=== PATIENT | female | born 1945 | race Asian ===

== ENCOUNTER 2019-12-14 15:39 | Emergency (ER) | payer MEDICARE, OTHER ==
[2019-12-14 15:57] LABS: BASOPHILS % (AUTO) 0.3 %; EOSINOPHILS # (AUTO) 0.2 10^3/uL (0.0-0.7); EOSINOPHILS % (AUTO) 2.7 %; LYMPHOCYTES # (AUTO) 1.2 10^3/uL (1.5-3.5); LYMPHOCYTES % (AUTO) 20.6 %; MEAN CORPUSCULAR HEMOGLOBIN 32.3 pg (27.0-31.0); MEAN CORPUSCULAR HGB CONC 33.7 g/dL (32.0-36.0); MEAN CORPUSCULAR VOLUME 95.8 fL (81.0-99.0); MEAN PLATELET VOLUME 9.7 fL (7.9-10.8); MONOCYTES # (AUTO) 0.5 10^3/uL (0.0-1.0); MONOCYTES % (AUTO) 7.8 %; NEUTROPHILS # (AUTO) 4.1 10^3/uL (1.5-6.6); NEUTROPHILS % (AUTO) 68.4 %; PLT - PLATELET COUNT 235 10^3/uL (130-450); RED BLOOD COUNT 4.33 10^6/uL (4.20-5.40); RED CELL DISTRIBUTION WIDTH 13.3 % (12.0-15.0); WHITE BLOOD COUNT 5.9 x10^3/uL (4.8-10.8)
[2019-12-14 16:10] LABS: ALBUMIN 4.5 g/dL (3.2-5.5); BILIRUBIN,TOTAL 0.7 mg/dL (0.2-1.0); CALCIUM 9.1 mg/dL (8.5-10.3); CREATININE 0.9 mg/dL (0.4-1.0); TOTAL PROTEIN 9.2 g/dL (6.7-8.2)
--- NOTE | 2019-12-14 16:11 | XRAY Report ---
PROCEDURE: Chest 1 View X-Ray INDICATIONS: chest pain TECHNIQUE: One view of the chest was acquired. COMPARISON: None FINDINGS: Surgical changes and devices: None. Lungs and pleura: No pleural effusions or pneumothorax. Mild bibasilar pulmonary fibrosis. Mediastinum: Mediastinal contours appear normal. Heart size is normal. Dense atherosclerosis of th e thoracic aorta. Bones and chest wall: No suspicious bony lesions. Overlying soft tissues appear unremarkable. IMPRESSION: 1. Mild bibasilar pulmonary fibrosis. 2. No evidence acute pulmonary process. 3. Atherosclerosis. Reviewed by: Daniel Moreau MD on 12/14/2019 3:10 PM [facility] Approved by: Daniel Moreau MD on 12/14/2019 3:10 PM [facility] Station ID: [id number]
--- NOTE | 2019-12-14 16:32 | ED Physician Documentation ---
PD HPI CHEST PAIN - Stated complaint Stated Complaint: HIGH BP, LT SHOULDER/NECK PX - Chief complaint Chief Complaint: Cardiac - History obtained from History obtained from: Patient - History of Present Illness Timing - onset: How many hours ago (6.5) Timing - onset during: Rest Timing - duration: Hours (6.5) Timing - details: Gradual onset Pain level max: 2 Pain level now: 2 Quality: Aching Location: Left shoulder/arm Radiation: No: Jaw, Neck, Back, Abdominal, Left upper extremity, Right upper extremity Improved by: Nothing Worsened by: No: Exertion, Inspiration, Eating, Movement, Palpation, Position Review of Systems Constitutional: denies: Fever, Chills Nose: denies: Rhinorrhea / runny nose, Congestion GI: denies: Nausea, Vomiting, Diarrhea Skin: denies: Rash Musculoskeletal: denies: Neck pain, Back pain Neurologic: denies: Headache PD PAST MEDICAL HISTORY - Past Medical History Past Medical History: Yes Cardiovascular: Hypertension, High cholesterol - Allergies Allergies/Adverse Reactions: Allergies Allergy/AdvReac Type Severity Reaction Status Date / Time simvastatin Allergy Unknown Verified 12/14/19 16:13 - Living Situation Living Situation: reports: With family Living Arrangement: reports: At home PD ED PE NORMAL - Vitals Vital signs reviewed: Yes - General General: Alert and oriented X 3, No acute distress - HEENT HEENT: PERRL, EOMI, Ears normal, Moist mucous membranes, Pharynx benign - Neck Neck: Supple, no meningeal sign - Cardiac Cardiac: RRR, Strong equal pulses - Respiratory Respiratory: No respiratory distress, Clear bilaterally - Abdomen Abdomen: Soft, Non tender, Non distended - Derm Derm: Warm and dry - Extremities Extremities: No edema, No calf tenderness / cord - Neuro Neuro: Alert and oriented X 3, shop 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, No motor deficit, No sensory deficit, Normal speech Results - Vitals Vitals: Vital Signs - 24 hr 12/14/19 12/14/19 15:55 18:40 Temperature 36.7 C 36.4 C L Heart Rate 91 88 Respiratory 18 16 Rate Blood Pressure 159/60 H 152/90 H O2 Saturation 99 98 Oxygen O2 Source Room air - EKG (time done) 1547 Rate: Rate (enter#) (91) Rhythm: NSR [place]: Normal Intervals: Prolonged IN QRS: Normal Ischemia: Normal ST segments - Labs Labs: Laboratory Tests 12/14/19 12/14/19 12/14/19 15:50 15:50 15:50 WBC 5.9 RBC 4.33 Hgb 14.0 Hct 41.5 MCV 95.8 MCH 32.3 H MCHC 33.7 RDW 13.3 Plt Count 235 MPV 9.7 Neut # (Auto) 4.1 Lymph # (Auto) 1.2 L [place] # (Auto) 0.5 Eos # (Auto) 0.2 Baso # (Auto) 0.0 Absolute Nucleated RBC 0.00 Nucleated RBC % 0.0 Sodium 135 Potassium 3.3 L Chloride 99 L Carbon Dioxide 27 Anion Gap 9.0 BUN 18 Creatinine 0.9 Estimated GFR (MDRD) 62 L Glucose 111 H Calcium 9.1 Total Bilirubin 0.7 AST 30 ALT 28 Alkaline Phosphatase 98 Troponin I High Sens 5.2 Total Protein 9.2 H Albumin 4.5 Globulin 4.7 H Albumin/Globulin Ratio 1.0 Lipase 29 12/14/19 17:50 WBC RBC Hgb Hct MCV MCH MCHC RDW Plt Count MPV Neut # (Auto) Lymph # (Auto) [place] # (Auto) Eos # (Auto) Baso # (Auto) Absolute Nucleated RBC Nucleated RBC % Sodium Potassium Chloride Carbon Dioxide Anion Gap BUN Creatinine Estimated GFR (MDRD) Glucose Calcium Total Bilirubin AST ALT Alkaline Phosphatase Troponin I High Sens 5.3 Total Protein Albumin Globulin Albumin/Globulin Ratio Lipase - Rads (name of study) cxr Radiology: Prelim report reviewed, EMP read contemporaneously, See rad report (no acute disease) PD MEDICAL DECISION MAKING - ED course Complexity details: reviewed results, re-evaluated patient, considered differential (No ST elevation [place], no aortic dissection, no PE, no tension pn eumothorax, no aortic aneurysm), d/w patient, d/w family ED course: 74-year-old female with left arm pain, concerning for anginal equivalent. Blood pressure decreased on its own in the emergency department. Negative high- sensitivity troponin x2 with greater than 6 hours of symptoms. She did recently start a new arm workout and that may be the cause of her symptoms. No evidence of encephalopathy. Patient counseled regarding signs and symptoms for which I believe and urgent re-evaluation would be necessary. Patient with good understanding of and agreement to plan and is comfortable going home at this time This document was made in part using voice recognition software. While efforts are made to proofread this document, sound alike and grammatical errors may o ccur. Departure - Departure Disposition: 01 Home, Self Care Clinical Impression: Atypical chest pain Hypertension Qualifiers: Hypertension type: unspecified Qualified Code(s): I10 - Essential (primary) hypertension Condition: Good Instructions: ED HTN Established Follow-Up: CHRIS NDIAYE MD [Primary Care Provider] - Within 1 week Comments: The cause of your symptoms is unclear today. Continue your medications at home. Return if you worsen. Discharge Date/Time: 12/14/19 18:42
[2019-12-14 18:42] VITALS: BP 152/90
== END 2019-12-14 18:42 | disposition home or self-care (01) ==
LOC: ED 15:39
DX: R07.89 Other chest pain (principal); M25.512 Pain in left shoulder; I10 Essential (primary) hypertension; I44.0 Atrioventricular block, first degree
CPT/HCPCS: 36415; 71045; 80053; 83690; 84484; 85025; 93005; 99284